=== PATIENT | female | born 1980 | race Caucasian/White ===

== ENCOUNTER 2020-04-27 15:08 | Outpatient (REF) | payer MEDICAID, SELFPAY ==
--- NOTE | 2020-04-27 | MM_ITS ---
EXAMINATION: MM DIAGNOSTIC DIGITAL BREAST TOMOSYNTHESIS, LEFT CLINICAL INFORMATION: Recall from baseline screening for parenchymal asymmetry medial left breast, likely island fibroglandular tissue. COMPARISON: Mammography: 04/04/2020 (baseline). TECHNIQUE: Digital breast tomosynthesis is performed. 2D images are generated from the tomosynthesis. The following views are obtained: 3-D rolled CC x2, 3-D LM. FINDINGS: There are scattered areas of fibroglandular density (ACR BI-RADS breast composition Category b). The additional views show normal fibroglandular densities. There is no mass or architectural abnormality or suspicious parenchymal asymmetry. Results are discussed with the patient at time of visit. IMPRESSION: No mammographic evidence of malignancy. ASSESSMENT: BI-RADS 2: Benign RECOMMENDATION: Routine annual mammography screening. This patient's information was entered into a reminder system with a target due date for their next mammogram.
== END 2020-04-27 15:09 | disposition home or self-care (01) ==
LOC: HO.MAMMO 15:08
PROVIDERS: Visit Provider Family Medicine
DX: R92.2 Inconclusive mammogram (principal)
CPT/HCPCS: 77065

== ENCOUNTER 2020-11-21 07:25 | Outpatient (REF) | payer MEDICAID, SELFPAY ==
[2020-11-21 08:16] LABS: MANUAL DIFF FLAG NO
[2020-11-21 08:19] LABS: Basophils Percent Auto 0.6 % (0-2); Eosinophils Absolute Auto 0.1 X10*3/uL (0.0-0.4); Eosinophils Percent Auto 1.2 % (0-4); Hematocrit 39.7 % (37-47); Hemoglobin 12.9 g/dl (12.0-16.0); Imm Gran Abs Auto 0.02 X10*3/uL (0.00-0.03); Imm Gran Pct Auto 0.3 % (0.0-0.4); Lymphocytes Absolute Auto 2.1 X10*3/uL (1.2-4.9); Lymphocytes Percent Auto 31.6 % (20-40); Mean Corpuscular HGB Conc 32.5 g/dl (31.0-35.0); Mean Corpuscular Hemoglobin 30.1 pg (27.0-33.0); Mean Corpuscular Volume 92.5 fL (80-98); Mean Platelet Volume 9.3 fL (9.4-12.3); Monocytes Absolute Auto 0.5 X10*3/uL (0.1-1.2); Monocytes Percent Auto 7.1 % (2-11); Neutrophils Absolute Auto 3.9 X10*3/uL (2.0-8.3); Neutrophils Percent Auto 59.2 % (45-73); Platelet Count 317 X10*3/uL (160-400); Red Blood Count 4.29 X10*6/uL (4.20-5.50); Red Cell Distribution Width 11.9 % (11.0-16.0); White Blood Count 6.7 X10*3/uL (4.8-10.8)
[2020-11-21 08:42] LABS: Alanine Aminotransferase 21 U/L (0-31); Albumin Level 4.4 g/dL (3.5-5.0); Alkaline Phosphatase 65 U/L (39-117); Anion Gap 14 (12-20); Aspartate Amino Transferase 17 U/L (5-31); Bilirubin Direct 0.3 mg/dL (0.0-0.5); Bilirubin Total 0.8 mg/dL (0.0-1.0); Blood Urea Nitrogen 15 mg/dL (9-16); Calcium 9.4 mg/dL (8.4-10.2); Carbon Dioxide 25 mmol/L (22-29); Chloride 105 mmol/L (96-108); Cholesterol 140 mg/dL; Estimated Glomerular Filt Rate > 60; Glucose Random 98 mg/dL (60-115); HDL Cholesterol 34 mg/dL; LDL Cholesterol Calculated 75 mg/dl; Potassium 4.4 mmol/L (3.3-5.1); Sodium 140 mmol/L (135-145); Total Protein 7.3 g/dL (6.5-8.0); Triglycerides 157 mg/dL
[2020-11-21 09:05] LABS: Free T4 (Free Thyroxine) 0.97 ng/dL (0.71-1.85); Thyroid Stimulating Hormone 0.52 uIU/mL (0.32-4.0); Vitamin D 25-OH Total 13.3 ng/mL (>30)
[2020-11-21 10:29] LABS: Estimated Average Glucose 100 mg/dL; Hemoglobin A1c % 5.1 %
[2020-11-23 03:56] LABS: HIV AB/AG Nonreactive (Nonreactive)
== END 2020-11-21 07:26 | disposition home or self-care (01) ==
LOC: HO.LAB 07:25
PROVIDERS: PCP Internal Medicine; Visit Provider Internal Medicine
DX: Z00.00 Encounter for general adult medical examination without abnormal findings (principal)
CPT/HCPCS: 36415; 80048; 80061; 80076; 82306; 83036; 84439; 84443; 85025; 87389

== ENCOUNTER 2021-08-02 16:39 | Emergency (ER) | payer MEDICAID, SELFPAY ==
--- NOTE | ~2021-08-02 | XR_ITS ---
EXAMINATION: XR CHEST CLINICAL INFORMATION: Dry cough. Previously Covid positive COMPARISON: 02/09/2015 TECHNIQUE: Frontal view of the chest was obtained. FINDINGS: No significant abnormality is noted involving the heart, lungs, mediastinum, bony thorax or soft tissues. XR/XR chest 1V IMPRESSION: Unremarkable examination.
[2021-08-02 16:54] VITALS: BP 138/78; PULSE 91; RESP 20; TEMP 37; O2SAT 100; BMI 29.2
--- NOTE | 2021-08-02 19:21 | ED.URI ---
HPI - URI/Sore Throat General Chief Complaint: Upper Respiratory Symptoms Stated Complaint: cough Time Seen by Provider: 08/02/21 17:36 Source: patient Mode of arrival: ambulatory Limitations: no limitations History of Present Illness HPI Narrative: On July 22 patient tested positive for COVID. Patient is vaccinated, no booster. No fever. Just a continuous cough MD elicited complaint: cough Onset (ago): week(s) Consistency: constant Severity: moderate Exacerbating factors: nothing Relieving factors: nothing Associated symptoms: denies other symptoms Related Data Previous Rx's Medication Instructions Recorded gumxckbeyjrot-RH-uleeyrfovaj 2.5 20 ml PO Q4H PRN #118 ml 08/02/21 mg-5 mg-50 mg/5 mL oral liquid (Robitussin Cough and Cold CF) Allergies Allergy/AdvReac Type Severity Reaction Status Date / Time No Known Allergies Allergy Unverified 04/09/20 18:34 Review of Systems Constitutional: Constitutional: Reports no additional constitutional complaints Eyes: Eyes: Reports no additional eye complaints ENT: Denies dizziness Cardiovascular: Cardiovascular: Reports no additional cardiovascular complaints Respiratory: Respiratory: Reports as per HPI Gastrointestinal: Gastrointestinal: Reports no additional gastrointestinal complaints Genitourinary: Genitourinary: Reports no additional female genitourinary complaints Musculoskeletal: Musculoskeletal: Reports no additional musculoskeletal complaints Integumentary/Breasts: Skin/Breast: Denies rash Neurologic: Reports system reviewed and no additional complaints, except as documented, Denies dizziness and Denies Sensory deficit (Neuro) Psychiatric: Psychiatric: Denies anxiety PMFSH Past Medical History Medical History No pertinent past medical history Surgical History No pertinent past surgical history Social History Social History Advance Directives: No Advance Directives Information Provided: Yes Patient : No Physical Exam Vital Signs: Vital Signs: Last Vital Signs Temp 98.6 F 08/02/21 16:54 Pulse 91 08/02/21 16:54 Resp 20 08/02/21 16:54 BP 138/78 08/02/21 16:54 Pulse Ox 100 08/02/21 16:54 BMI result Body Mass Index 29.2 Const: General: healthy appearing Nutritional Appearance: average body habitus Orientation/consciousness: oriented to person and patient oriented x3 Limitations: no limitations HENMT: Head: Yes normal to inspection Ears: external ears normal General nose exam: Normal external nose present Mouth: Normal oral and palatal mucosa present and oropharynx normal Throat: Yes posterior oropharynx normal Eyes: General: appearance normal, both eyes and all related structures Neck: Other: supple Neck: Yes normal visual inspection Chest: Chest palpation & inspection: normal inspection of the chest Resp: Other: continual dry cough Auscultation: clear to auscultation bilaterally Cardio: Jugular venous distension: no JVD Rate: regular rate Rhythm: regular rhythm Heart sounds: S1 normal heart sound present and S2 normal heart sound present GI: Inspection: Yes normal to inspection Palpation (GI): Soft to palpation, nontender and No hepatosplenomegaly present Auscultation: normal bowel sounds : General: Yes no CVA tenderness Back/Spine/Pelvis: Back: no CVA tenderness Skin: General skin exam: no rashes or lesions noted Neuro: General: oriented to person and patient oriented x3 Cranial nerves: Yes CN's II-XII intact bilaterally Motor exam (neuro): 5/5 motor strength present throughout Sensory Exam: No Sensory deficit (Neuro) Extrem: General: Yes normal to inspection Psych: Appearance: grossly normal Course Reevaluation(s) Reevaluation #1: patient is well appearing despite constant cough, vitals and oxygen are normal, will dc home on cough medicine Time: 19:30 MDM - URI/Sore Throat Imaging Data Chest x-ray: Radiologist's impression: FINDINGS: No significant abnormality is noted involving the heart, lungs, mediastinum, bony thorax or soft tissues. XR/XR chest 1V IMPRESSION: Unremarkable examination. ? Discharge Plan Discharge Clinical Impression: COVID-19 Patient Disposition: Home, Self-Care Instructions: COVID-19 (Coronavirus Disease 2019) (ED) Prescriptions: New Robitussin Cough and Cold CF 2.5-5-50 mg/5 mL liquid 20 ml PO Q4H PRN (Reason: cough) Qty: 118 RF: 0 Referrals: Physician,Unknown J [Primary Care Provider] - 1 week
== END 2021-08-02 19:38 | disposition home or self-care (01) ==
PROVIDERS: Emergency Provider Emergency Medicine
DX: R05.9 Cough, unspecified (principal); Z86.16 Personal history of COVID-19
CPT/HCPCS: 71045; 99283

== ENCOUNTER 2022-04-30 09:57 | Outpatient (REF) | payer OTHER, SELFPAY ==
--- NOTE | ~2022-04-30 | MM_ITS ---
EXAMINATION: MM SCREENING DIGITAL BREAST TOMOSYNTHESIS, BILATERAL CLINICAL INFORMATION: Screening. Asymptomatic. The lifetime risk of breast cancer based on the Tyrer-Cuzick Model is 7%. COMPARISON: Mammography: 04/27/2020, 04/04/2020 (baseline) TECHNIQUE: Digital breast tomosynthesis is performed in both the craniocaudal and mediolateral oblique views along with computer-aided detection (CAD). Synthesized 2D images are generated from the tomosynthesis. FINDINGS: There are scattered areas of fibroglandular density (ACR BI-RADS breast composition Category b). Parenchymal pattern is similar to prior exam. No interval mass or architectural abnormality. No abnormal calcifications. Low right axillary tail nodes stable. The skin contours are smooth. MM/MM tomosynthesis screening BI IMPRESSION: No mammographic evidence of malignancy. ASSESSMENT: BI-RADS 1: Negative RECOMMENDATION: Routine annual mammography screening. This patient's information was entered into a reminder system with a target due date for their next mammogram.
== END 2022-04-30 09:58 | disposition home or self-care (01) ==
LOC: HO.MAMMO 09:57
PROVIDERS: PCP Internal Medicine; Visit Provider Internal Medicine
DX: Z12.31 Encounter for screening mammogram for malignant neoplasm of breast (principal)
CPT/HCPCS: 77063; 77067

== ENCOUNTER 2023-06-03 09:29 | Outpatient (REF) | payer OTHER, SELFPAY | END 2023-06-03 09:30 | disposition home or self-care (01) | LOC: HO.MAMMO 09:29 | PROVIDERS: Visit Provider Internal Medicine | DX: Z12.31 Encounter for screening mammogram for malignant neoplasm of breast (principal) | CPT/HCPCS: 77063; 77067 ==

== ENCOUNTER → 2023-06-03 09:45 | Outpatient (BNV) | payer OTHER, SELFPAY | PROVIDERS: Visit Provider Radiology Diagnostic Radiology | DX: Z12.31 Encounter for screening mammogram for malignant neoplasm of breast (principal) | CPT/HCPCS: 77063; 77067 ==

== ENCOUNTER 2023-09-08 11:19 | Outpatient (REF) | payer OTHER, SELFPAY ==
[2023-09-08 15:23] LABS: Vitamin D 25-OH Total 33.6 ng/mL (>30)
== END 2023-09-08 11:20 | disposition home or self-care (01) ==
LOC: HO.CHCLDS 11:19
PROVIDERS: Visit Provider Internal Medicine
DX: E55.9 Vitamin D deficiency, unspecified (principal)
CPT/HCPCS: 36415; 82306

== ENCOUNTER 2024-03-23 20:36 | Emergency (ER) | payer OTHER, SELFPAY ==
[2024-03-23 20:54] VITALS: BP 152/87; PULSE 102; RESP 16; TEMP 36.7; O2SAT 99; BMI 29.2
[2024-03-24 00:36] VITALS: BP 156/87; PULSE 113; RESP 18; TEMP 36.6; O2SAT 99
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
[2024-03-24 01:13] VITALS: BP 156/87; PULSE 113; RESP 18; TEMP 36.6; O2SAT 99
== END 2024-03-24 01:14 | disposition home or self-care (01) ==
PROVIDERS: Emergency Provider Emergency Medicine Emergency Medical Services
DX: S09.90XA Unspecified injury of head, initial encounter (principal); S00.11XA Contusion of right eyelid and periocular area, initial encounter; V28.09XA Other motorcycle driver injured in noncollision transport accident in nontraffic accident, initial encounter; Y93.89 Activity, other specified; Y92.008 Other place in unspecified non-institutional (private) residence as the place of occurrence of the external cause; Y99.9 Unspecified external cause status
CPT/HCPCS: 99282; 99284

== ENCOUNTER 2024-06-08 09:35 | Outpatient (REF) | payer OTHER, SELFPAY ==
--- NOTE | ~2024-06-08 | MM_ITS ---
EXAMINATION: MM SCREENING DIGITAL BREAST TOMOSYNTHESIS, BILATERAL CLINICAL INFORMATION: Screening. Asymptomatic. COMPARISON: Mammography: Comparison is made with available priors TECHNIQUE: Digital breast mammography with tomosynthesis is performed in both the craniocaudal and mediolateral oblique views along with computer-aided detection (CAD). FINDINGS: There are scattered areas of fibroglandular density (ACR BI-RADS breast composition Category b). There are no significant masses, abnormal calcifications, or other abnormalities. MM/MM tomosynthesis screening BI IMPRESSION: No mammographic evidence of malignancy. ASSESSMENT: BI-RADS BI-RADS 1 - Negative RECOMMENDATION: Routine annual mammography screening. 1 year F/U This examination should not preclude the clinical evaluation of a suspicious palpable abnormality. This patient's information was entered into a reminder system with a target due date for their next mammogram. Electronically signed by: Kailyn Cortez DO 06/18/2024 11:06 AM RENU
== END 2024-06-08 09:36 | disposition home or self-care (01) ==
LOC: HO.MAMMO 09:35
PROVIDERS: PCP Internal Medicine; Visit Provider Internal Medicine
DX: Z12.31 Encounter for screening mammogram for malignant neoplasm of breast (principal)
CPT/HCPCS: 77063; 77067

== ENCOUNTER → 2024-06-08 09:45 | Outpatient (BNV) | payer OTHER, SELFPAY | PROVIDERS: PCP Internal Medicine; Visit Provider Internal Medicine | DX: Z12.31 Encounter for screening mammogram for malignant neoplasm of breast (principal) | CPT/HCPCS: 77063; 77067 ==

== ENCOUNTER 2025-06-14 09:37 | Outpatient (REF) | payer OTHER, SELFPAY ==
--- NOTE | ~2025-06-14 | MM_ITS ---
EXAMINATION: MM SCREENING DIGITAL BREAST TOMOSYNTHESIS, BILATERAL CLINICAL INFORMATION: Screening. Asymptomatic. COMPARISON: Comparison made to multiple prior, most recent June 08, 2024, and most remote April 04, 2020. TECHNIQUE: Digital breast tomosynthesis is performed in mediolateral oblique and craniocaudal views along with computer-aided detection (CAD). Synthesized 2D images are generated from the tomosynthesis. FINDINGS: BREAST COMPOSITION: There are scattered areas of fibroglandular density. BILATERAL BREASTS: No significant masses, suspicious calcifications or other abnormalities are seen in either breast. MM/MM tomosynthesis screening BI IMPRESSION: BILATERAL BREASTS: Negative, no mammographic evidence of malignancy. Normal interval follow-up is recommended in 12 months. ASSESSMENT: BI-RADS: Category 1: Negative RECOMMENDATION: Routine annual mammography screening. FOLLOW-UP: 1 year F/U This examination should not preclude the clinical evaluation of a suspicious palpable abnormality. This patient's information was entered into a reminder system with a target due date for their next mammogram. Electronically signed by: Luis Daniel Osuna MD 06/17/2025 07:27 AM EST
--- OUTSIDE RECORDS SUMMARY | 2025-06-14 09:40 | XMS_ITS | Encounter Summary ---
Author Organization [employer] Address [address] [place] [address] Care Team Providers Care Smoke And Flame Specialist Name Role Phone Huy Liang MD Primary Care Prov ider Reason for Visit * Reason Onset Date Comments Lab Orders 04/18/2025 Encounter Details Date Type Department Care Team ([facility] Contact Info) Description 04/18/2025 Telephone [facility] [address] [place] [address] Huy Liang MD [address] [place] [address] Lab Orders Social History Tobacco Use Types Packs/Day Years Used Date Smoking Tobacco: Never Passive Smoke Exposure: Never Smokeless Tobacco: Never Alcohol Use Standard Drinks/Week Comments Never 0 (1 standard drink = 0.6 oz pur e alcohol) Depression Answer Date Recorded Patient Health Questionnaire-9 Score 0 12/06/2024 Patient Health Questionnaire-9 Score 0 12/06/2024 Last PHQ-9: Questionnaire Data Not on file 0 12/06/2024 Housing Stability Answer Date Recorded What is your housing situation today? I have arcelia cathryn 11/28/[address] you li ve. Do you have problems with any of the following? None of the above 11/28/2024 Food Insecurity Answer Date Recorded Within the past 12 months, y ou worried that your food would run out before you got money to buy more: Never True 11/28/2024 Within the past 12 months,th e food you bought just didn't last and you didn't have enough money to get more: Never True 02/2025 Transportation Answer Date Recorded In the past 12 months, has l ack of transportation kept you from medical appts, meetings, work or from getting things needed for daily living? No 11/28/2024 Utilities Answer Date Recorded In the past 12 months, has t he electric, gas, oil or water company threatened to shut off services in your home? No 11/28/2024 Depression Answer Date Recorded Patient Health Questionnaire-2 Score 0 12/06/2024 Internet Access Answer Date Recorded Internet Access Q1 Yes 11/28/2024 Internet Access Q2 Not on file 11/28/2024 Comments No Sex and Gender Information Value Date Recorded Sex Assigned at Female 05/23/2022 10:25 AM EDT Legal Sex Female 10:25 AM EDT Gender Identity Female 05/23/2022 10:25 AM EDT Sexual Orientation Straight 05/23/2022 10 :25 AM EDT documented as of this encounter Miscellaneous Notes * Telephone Encounter - Shivam Blackman - 04/18/2025 10:28 AM EDT Tc from pt [place] a full [place] [facility] Contact pt at [phone] documented in this encounter Plan of Treatment Not on file documented as of this encounter Visit Diagnoses Not on filedocumented in this encounter Additional Health Concerns Assessment Noted Time PHQ-9 Depression Total Score: 0 12/07/19 25 2:37 PM EDT documented as of this encounter Care Teams Smoke And Flame Specialist Relationship Specialty Start Date End Date Huy Liang MD [address] [place] [address] PCP - General Internal Medicine 12/22/19 documented as of this encounter
--- OUTSIDE RECORDS SUMMARY | 2025-06-14 09:40 | XMS_ITS | Clinical Summary ---
Author Organization [facility] Address [address] [place] [address] Phone Care Team Providers Care Rivet Spinner Name Role Phone Huy Liang Primary Care Provide r Allergies No known active allergies Encounters Date Type Department Care Team Description 04/29/2025 4:34 AM EDT - 04/29/2025 5:05 AM EDT Emergency [facility] Emergency [address] [place] [address] Respiratory tract infection (Primary Dx) Discharge Disposition: Home or Self Care from Last 3 Months Social History Tobacco Use Types Packs/Day Years Used Date Smoking Tobacco: Never Smokeless Tobacco: Never Tobacco Cessation:Counseling Given: Not Answered Comments Unknown Sex and Gender Information Value Date Recorded Sex Assigned at Not on file Legal Sex Female 3:45 AM EDT Gender Identity Not on file Sexual Orientation Not on file Obstetrics History Last Filed Vital Signs Vital Sign Reading Time Taken Comments Blood Pressure 136/89 04/29/2025 3:53 AM EDT Pulse 100 04/29/2025 3:53 AM EDT Temperature 36.8 C (98.2 F) 04/29/2025 3:53 AM EDT Respiratory Rate 16 04/29/2025 3:53 AM EDT Oxygen Saturation 97% 04/29/2025 3:53 AM EDT Inhaled Oxygen Concentration - - Weight 69.9 kg (154 lb) 04/29/2025 3:53 AM EDT Height 157.5 cm (5' 2 ) 04/29/2025 3:53 AM EDT Body Mass Index 28.17 04/29/2025 3:53 AM EDT Plan of Treatment Health Maintenance Due Date Last Done Comments Breast Cancer Screening 1979 Colorectal Cancer Screening: Colonoscopy 1979 Cervical Cancer Screening: P ap Smear 2000 HPV Vaccines (1 - 3-dose SCD M series) 2006 Hepatitis B Vaccines (3 of 3 - 19+ 3-dose series) 07/02/2019 01/30/2019, 12/31/2018 Depression Screening 07/24/2024 COVID-19 Vaccine (1 - 2024-2 6 season) 2025 Influenza Vaccine (#1) 2025 4, 04/30/2014, 04/03/2013 Hepatitis C Screening 04/29/2025 Social Influencers of Health Screening 04/29/2025 DTaP,Tdap,and Td Vaccines (2 - Td or Tdap) 05/31/2027 05/31/2017 RSV Immunization Adult Patients (1 - 1-dose 75+ series) 2054 Varicella Vaccines Aged Out 01/30/2019, 12/14/2018 No longer eligible based on patient's age to complete this topic Hepatitis A Vaccines Aged Out 08/26/2019, 12/31/2018 No longer eligible based on patient's age to complete this topic HIV Screening Completed 04/07/2022 HIB Vaccines Aged Out No longer eligi ble based on patient's age to complete this topic IPV Vaccines Aged Out No longer eligi ble based on patient's age to complete this topic MMR Vaccines Aged Out No longer eligi ble based on patient's age to complete this topic Meningococcal ACWY Vaccine Aged Out N o longer eligible based on patient's age to complete this topic Meningococcal B Vaccine Aged Out No l onger eligible based on patient's age to complete this topic Pneumococcal Vaccine: Pediatrics (0 to 5 Years) and At-Risk Patients (6 to 49 Years) Aged Out No longer eligible b ased on patient's age to complete this topic RSV Immunization Patients Under 20 months Aged Out No longer eligible b ased on patient's age to complete this topic Procedures Procedure Name Priority Date/Time Associated Diagnosis Comments XR CHEST 2 VIEWS STAT 04/29/2025 4:04 AM EDT from Last 3 Months Results * XR Chest 2 Views (04/29/2025 4:04 AM EDT) Anatomical Region Laterality Modality Body Radiographic Silvina ging 04/29/2025 9:38 AM EDT Impressions 04/29/2025 9:39 AM EDT Impression: Normal chest. Telerad KAELA ([id number]) -------- FINAL REPORT -------- Dictated By: Catia Jacobsen Dictated Date: 04/29/2025 09:38 ET Assigned Physician: Catia Jacobsen Reviewed and Electronically Signed By: Catia Jacobsen Signed Date: 04/29/2025 09:39 ET Workstation ID: [id number] Transcribed By: Self Edit Transcribed Date: 04/29/2025 09:38 ET Narrative 04/29/2025 9:39 AM EDT History: Cough. Comparison: No previous imaging at this institution. Findings: PA and lateral views. The cardiomediastinal silhouette, hilar contours and pulmonary vascularity are within normal limits. The lungs are clear. The costophrenic angles are sharp. Bones and soft tissues are unremarkable. Procedure Note Catia Jacobsen MD - 04/29/2025 History: Cough. Comparison: No previous imaging at this institution. Findings: PA and lateral views. The cardiomediastinal silhouette, hilar contours andpulmonary vascularity are within normal limits. The lungs are clear. Thecostophrenic angles are sharp. Bones and soft tissues are unremarkable. IMPRESSION: Impression: Normal chest. Telerad KAELA ([id number]) -------- FINAL REPORT -------- Dictated By: Catia Jacobsen Dictated Date: 04/29/2025 09:38 ET Assigned Physician: Catia Jacobsen Reviewed and Electronically Signed By: Catia Jacobsen Signed Date: 04/29/2025 09:39 ET Workstation ID: [id number] Transcribed By: Self Edit Transcribed Date: 04/29/2025 09:38 ET Yasmin SHERWOOD IMG XR PROCEDURES Final Result from Last 3 Months Insurance [facility] Care Teams Rivet Spinner Relationship Specialty Start Date End Date Huy Liang [address] [place] [address] [place] [id number] PCP - General Internal Medicine 04/29/25
--- OUTSIDE RECORDS SUMMARY | 2025-06-14 09:40 | XMS_ITS | Clinical Summary ---
Author Organization [facility] Address [address] [place] [address] Care Team Providers Care Crown Attacher Name Role Phone Huy Liang MD Primary Care Prov ider Allergies No known active allergies Medications Blood Pressure Monitoring (Adult Blood Pressure Cuff Lg) kitIndications:E levated blood pressure reading 1 EACH IN THE MORNING. 1 kit 01/30/2025 Active Active Problems Problem Noted Date Diagnosed Date Elevated blood pressure reading 12/06/2024 Assessment & Plan (12/06/2024 4:23 PM EDT): Advise low-sodium diet, reduction I will prescribe for patient on blood pressure monitor and I advised to monitor her blood pressure for the next 2 weeks log it and report back to us Screening for cervical cancer 09/08/2023 Assessment & Plan (09/08/2023 1:33 PM EST): Will refer for screening pap Annual physical exam 09/08/2023 Assessment & Plan (12/06/2024 4:23 PM EDT): See HPI Vitamin D deficiency 03/30/2023 Assessment & Plan (09/08/2023 1:32 PM EST): Will order new labs for guidance Assessment & Plan (03/30/2023 3:56 PM EDT): Will schedule for a physical examination in 2-3 months, currently she does not have any complains. Breast cancer screening by mammogram 03/30/2023 Assessment & Plan (03/30/2023 3:56 PM EDT): Due on April, she will call to schedule appointment Encounters Date Type Department Care Team Description 05/03/2025 10:20 AM EDT Office Visit [facility] [address] [place], [place] [phone] Shlomo Wilson MD Viral URI with cough 05/03/2025 Travel 04/30/2025 Orders Only [facility] [address] [place], [place] [phone] ProviderJavy MD 04/18/2025 1:30 PM EDT Office Visit [facility] [address] [place] [address] Sujit, Nidhi, OD Normal eye exam (Primary Dx); Presbyopia 04/18/2025 Travel 04/18/2025 Telephone [facility] [address] [place], [place] [phone] ReisHuy Segura MD Lab Orders 04/17/2025 Travel from Last 3 Months Immunizations Immunization Administration Dates Next Due Hep A, Adult 08/26/2019,12/31/2018 Hep B, adult 01/30/2019,12/31/2018 Influenza injectable quadrivalent preservative f ree 09/08/2023 Influenza, IIV3, injectable 04/30/2014 Influenza, Split (incl. purified surface antigen ) 04/03/2013 Tdap 05/31/2017 Varicella 01/30/2019,12/14/2018 Family History Medical History Relation Name Comments Hypertension Brother Hypertension Father Diabetes Mother Hypertension Mother Relation Name Status Comments Brother Father Mother Social History Tobacco Use Types Packs/Day Years Used Date Smoking Tobacco: Never Passive Smoke Exposure: Never Smokeless Tobacco: Never Tobacco Cessation:Counseling Given: Not Answered Alcohol Use Standard Drinks/Week Comments Never 0 (1 standard drink = 0.6 oz pur e alcohol) Depression Answer Date Recorded Patient Health Questionnaire-9 Score 0 12/06/2024 Patient Health Questionnaire-9 Score 0 12/06/2024 Last PHQ-9: Questionnaire Data Not on file 0 12/06/2024 Housing Stability Answer Date Recorded What is your housing situation today? I have arcelia lockett 11/28/[address] you li [...] Orientation Straight 05/23/2022 10 :25 AM EDT Last Filed Vital Signs Vital Sign Reading Time Taken Comments Blood Pressure 139/96 05/03/2025 10:08 AM EDT Pulse 107 05/03/2025 10:08 AM EDT Temperature 37.2 C (98.9 F) 05/03/2025 10:08 AM EDT Respiratory Rate 21 05/03/2025 10:08 AM EDT Oxygen Saturation 98% 05/03/2025 10:08 AM EDT Inhaled Oxygen Concentration - - Weight 73 kg (161 lb) 05/03/2025 10:08 AM EDT Height 154.9 cm (5' 1 ) 05/03/2025 10:08 AM EDT Body Mass Index 30.42 05/03/2025 10:08 AM EDT Plan of Treatment Health Maintenance Due Date Last Done Comments CT Colonography 1979 Colonoscopy 1979 Colorectal Cancer Screening 1979 FIT DNA/Cologuard 1979 FIT 1979 FOBT 1979 Sigmoidoscopy 1979 Family Planning (PISQ) 1994 HPV Vaccines (1 - 3-dose series) 1994 Pap Smear 2000 Hepatitis B Vaccines (3 of 3 - 19+ 3-dose series) 07/02/2019 01/30/2019, 12/31/2018 Cervical Cancer Screening 11/07/2023 HPV/Cotest 11/07/2023 11/06/2018 Dental Oral Exam 02/07/2025 08/09/2024 Dental Prophylaxis 02/07/2025 08/09/2024 COVID-19 Vaccine ( season) 2025 11/09/2020, 10/17/2020 Influenza Vaccine (#1) 2025 , 07/21/2020, 08/26/2019, Additional history exists Dental X-Ray: Bitewings 08/10/2025 08/09/2024 SDOH Screening 11/28/2025 11/28/2024 Alcohol/Substance Use Screening 12/06/2025 12/06/2024 Depression Screening 12/06/2025 12/06/2024, 12/07/19 25 Disability Screening 12/06/2025 12/06/2024 Tobacco Screening 05/03/2026 05/03/2025 Mammogram 06/08/2026 06/08/2024, 05/24, 04/30/2022 DTaP/Tdap/Td Vaccines (2 - Td or Tdap) 05/31/2027 05/31/2017 Dental X-Ray: Full Mouth 08/10/2027 08/09/2024 Zoster Vaccines (1 of 2) 2029 RSV Patients and Patients Aged 60 years or older (1 - 1-dose 75+ series) 2054 Hepatitis A Vaccines Aged Out 08/26/2019, 01/01/20 19 No longer eligible based on patient's age to complete this topic HIV Screening Completed 04/07/2022, 11/21/2020 Hepatitis C Screening Completed 04/07/2022 HIB Vaccines Aged Out No longer eligi ble based on patient's age to complete this topic IPV Vaccines Aged Out No longer eligi ble based on patient's age to complete this topic Meningococcal B Vaccine Aged Out No l onger eligible based on patient's age to complete this topic Meningococcal Vaccine Aged Out No jo estefany eligible based on patient's age to complete this topic Pneumococcal Vaccine: Pediatrics (0 to 5 Years) and At-Risk Patients (6 to 49) Years Aged Out No longer eligible based on patient's age to complete this topic RSV under 20 months Aged Out No longe r eligible based on patient's age to complete this topic Rotavirus Vaccines Aged Out No longer eligible based on patient's age to complete this topic Procedures Procedure Name Priority Date/Time Associated Diagnosis Comments POCT INFLUENZA A (ID NOW RAPID MOLECULAR) Routine 05/03/2025 10:15 AM EDT Viral URI with cough POCT INFLUENZA B (ID NOW RAPID MOLECULAR) Routine 05/03/2025 10:12 AM EDT Viral URI with cough POCT RAPID COVID ANTIGEN Routine 05/03/2025 10:11 AM EDT Viral URI with cough XR CHEST 2 VIEWS Routine 04/29/2025 9:30 AM EDT PROPHYLAXIS - ADULT Routine 08/09/2024 1 0:00 AM EST Secondary dental caries associated with failed or defective dental mandaeism Gingivitis INTRAORAL - COMPLETE SERIES OF RADIOGRAPHIC IMAGES Routine 08/09/2024 10:00 AM EST Secondary dental caries associated with failed or defective dental mandaeism Gingivitis COMPREHENSIVE ORAL EVALUATION - NEW OR ESTABLISHED PATIENT Routine 08/09/2024 10:00 AM EST Secondary dental caries associated with failed or defective dental mandaeism Gingivitis BI MAMMOGRAM SCREENING TOMOSYNTHESIS BILATERAL Routine 06/08/2024 9:40 AM EST ZZZ HISTORICAL HEPATITIS C AB W/REFL TO HCV RNA, QN, PCR Routine 04/07/2022 8:40 AM EDT HIV 1/2 ANTIGEN/ANTIBODY, FOURTH GENERATION W/RFL Routine 04/07/2022 8:40 AM EDT ZZZ HISTORICAL HPV MRNA E6/E7 Routine 11/06/2018 2:25 PM EDT from Last 3 Months or Most Recently Relevant to Health Maintenance Results * POCT Rapid Influenza A MTZ ID NOW (05/03/2025 10:15 AM EDT) Influenza A Negative Negative, Indeterminate [facility] QC Media Lot # [id number] [facility] Lot# Expiration Date [facility] Swab 05/03/2025 10:1 5 AM EDT us Shlomo Wilson MD POINT OF CARE TEST ENTER/EDIT OR DERABLES Final Result Performing Organization Address [facility] Co de Phone Number [facility] [address] [place] [phone] * POCT Rapid Influenza B MTZ ID NOW (05/03/2025 10:12 AM EDT) Influenza B Negative Negative, Indeterminate [facility] QC Media Lot # [id number] [facility] Lot# Expiration Date [facility] Swab 05/03/2025 10:1 2 AM EDT us Shlomo Wilson MD POINT OF CARE TEST ENTER/EDIT OR DERABLES Final Result Performing Organization Address City/[facility]/ZIP Co de Phone Number [facility] [address] [place] [phone] * POCT Rapid Covid-19 BinaxNOW (05/03/2025 10:11 AM EDT) Rapid COVID Ag Negative QC Media Lot # [id number] Lot# Expiration Date Swab 05/03/2025 10:1 1 AM EDT us Shlomo Wilson MD POINT OF CARE TEST ENTER/EDIT OR DERABLES Final Result * XR Chest 2 Views (04/29/2025 9:30 AM EDT) Anatomical Region Laterality Modality Chest Radiographic Silvina ging us Historical Provider MD SCALES XR PROCEDURES Final R esult * BI Mammogram Screening Tomosynthesis Bilateral (06/08/2024 9:40 AM EST) Anatomical Region Laterality Modality Breast Bilateral Mammography 06/08/2024 9:40 AM EST Narrative 06/18/2024 11:09 AM EST [place] [facility] [address] [place] [address] Mammography Report Signed Patient: Benito Ng MR#: [id number] : 1980 Acct:[id number] Age/Sex: 43 / F ADM Date: 06/08/24 Loc: HO.MAMMO Attending Dr: Huy Whiteside MD Ordering Physician: Huy Liang MD Res ults: 1Negative Date of Service: 06/08/24 Follow Up: 1 Year From Orig ina Mammogram Procedure(s): MM tomosynthesis screening BI Accession Number(s): [id number] cc: Huy Liang MD EXAMINATION: MM SCREENING DIGITAL BREAST TOMOSYNTHESIS, BILATERAL CLINICAL INFORMATION: Screening. Asymptomatic. COMPARISON: Mammography: Comparison is made with available priors TECHNIQUE: Digital breast mammography with tomosynthesis is performed in both the craniocaudal and mediolateral oblique views along with computer-aided detection (CAD). FINDINGS: There are scattered areas of fibroglandular density (ACR BI-RADS breast composition Category b). There are no significant masses, abnormal calcifications, or other abnormalities. MM/MM tomosynthesis screening BI IMPRESSION: No mammographic evidence of malignancy. ASSESSMENT: BI-RADS BI-RADS 1 - Negative RECOMMENDATION: Routine annual mammography screening. 1 year F/U This examination should not preclude the clinical evaluation of a suspicious palpable abnormality. This patient's information was entered into a reminder system with a target due date for their next mammogram. Electronically signed by: Kailyn Cortez DO 06/18/2024 11:06 AM EST RP Dictated By: Kailyn Cortez DO Signed By: <Electronically signed by Kailyn Cortez DO in OV> 06/18/24 1106 DD/ 9 TD/TT: 06/08/24 09 Fruit Press Operator: Procedure Note Donotuseinterpreter, Image - 06/18/2024 [place] [facility] [address] [place] [address] Mammography Report Signed Patient: Keven NgR#: [id number] : 1980Acct:[id number] Age/Sex: 43 / FADM Date: 06/08/24 Loc: HO.MAMMO Attending Dr: Huy Whiteside MD Ordering Physician: Huy Liang ults: 1Negative Date of Service: 06/08/24Follow Up: 1 Year From Orig ina Mammogram Procedure(s): MM tomosynthesis screening BI Accession Number(s): [id number] cc: Huy Liang MD EXAMINATION: MM SCREENING DIGITAL BREAST TOMOSYNTHESIS, BILATERAL CLINICAL INFORMATION: Screening. Asymptomatic. COMPARISON: Mammography: Comparison is made with available priors TECHNIQUE: Digital breast mammography with tomosynthesis is performed in both the craniocaudal and mediolateral oblique views along with computer-aided detection (CAD). FINDINGS: There are scattered areas of fibroglandular density (ACR BI-RADS breast composition Category b). There are no significant masses, abnormal calcifications, or other abnormalities. MM/MM tomosynthesis screening BI IMPRESSION: No mammographic evidence of malignancy. ASSESSMENT: BI-RADS BI-RADS 1 - Negative RECOMMENDATION: Routine annual mammography screening. 1 year F/U This examination should not preclude the clinical evaluation of a suspicious palpable abnormality. This patient's information was entered into a reminder system with a target due date for their next mammogram. Electronically signed by: Kailyn Cortez DO 06/18/2024 11:06 AM EST RP Dictated By: Kailyn Cortez DO Signed By: <Electronically signed by Kailyn Cortez DO in OV> 06/18/24 1106 DD/ 0940 TD/TT: 06/08/24 0955 Fruit Press Operator: Huy Whiteside MD IMG BI PROCEDURES Final Result * HEPATITIS C AB W/REFL TO HCV RNA, QN, PCR (04/07/2022 8:40 AM EDT) HEPATITIS C ANTIBODY NON-REACT NIKOS NON-REACT NIKOS [facility] INDEX 0.05 <1.00 [facility] Comment: HCV antibody was non-reactive. There is no laboratory evidence of HCV infection. In most cases, no further action is required. However, if recent HCV exposure is suspected, a test for HCV RNA (test code 04358) is suggested. For additional information please refer to http://[employer]/faq/EGY45k6 (This link is being provided for informational/ educational purposes only.) 04/07/2022 8:40 AM EDT Huy Whiteside MD HISTORICAL/NON ORD ERABLE LABS Final Result [facility] [address] * HIV 1/2 ANTIGEN/ANTIBODY,FOURTH GENERATION W/RFL (04/07/2022 8:40 AM EDT) HIV-1/2 ANTIGEN AND ANTIBODIES, 4TH GENERATION W/ REFLEX NON-REACT NIKOS NON-REACT NIKOS [facility] Comment: HIV-1 antigen and HIV-1/HIV-2 antibodies were not detected. There is no laboratory evidence of HIV infection. PLEASE NOTE: This information has been disclosed to you from records whose confidentiality may be protected by state law. If your state requires such protection, then the state law prohibits you from making any further disclosure of the information without the specific written consent of the person to whom it pertains, or as otherwise permitted by law. A general authorization for the release of medical or other information is NOT sufficient for this purpose. For additional information please refer to http://education.[employer]/faq/RNP232 (This link is being provided for informational/ educational purposes only.) The performance of this assay has not been clinically validated in patients less than 2 years old. 04/07/2022 8:40 AM EDT Huy Whiteside MD LAB BLOOD ORDERABL ES Final Result Performing Organization Address [facility]/ZIP Co de Phone Number [facility] [address] * HPV mRNA E6/E7 (11/06/2018 2:25 PM EDT) HPV mRNA E6/E7 Not Detected NOT DETECTED [facility] Comment: This test was performed using the APTIMA(R) HPV Assay ([employer] This assay detects E6/E7 viral messenger RNA (mRNA) from 14 high-risk HPV types (16,18,31,33,35,39,45,51, 52,56,58,59,66,68). For additional information please refer to: http://education.[employer]/faq/BKG949r2 (This link is being provided for informational/ educational purposes only.) The analytical performance characteristics of this assay have been determined by [employer] [place], [place]. The modifications have not been cleared or approved by the FDA. This assay has been validated pursuant to the CLIA regulations and is used for clinical purposes. Test Performed by [facility], [facility], [address] [place] [address] Yasmany Quesada M.D., Ph.D., Director of Laboratories , CLIA [id number] Please note: Effective 04/04/2016, HPV testing will be performed using [employer]'s APTIMA test which targets mRNA. Detecting mRNA instead of DNA, as in older methods, offers significant improvements in specificity. 11/06/2018 2:25 PM EDT Nadja Nieves CNM HISTORICAL/NON ORDERABLE LABS Final Result [facility] [address] from Last 3 Months or Most Recently Relevant to Health Maintenance Insurance [facility] 3 DENTAL - HSN PARTIAL (MEDICAID) Care Teams Crown Attacher Relationship Specialty Start Date End Date ReisHuy Carrero MD [address] [place] [address] PCP - General Internal Medicine 12/22/19
--- OUTSIDE RECORDS SUMMARY | 2025-06-14 09:40 | XMS_ITS | Encounter Summary ---
Author Organization [facility] Address [address] [place] [address] Care Team Providers Care Concaving Machine Operator Name Role Phone Huy Liang MD Primary Care Prov ider Encounter Details Date Type Department Care Team ([facility] st Contact Info) Description 04/30/2025 Orders Only [facility] [address] [place] [address] Provider, MD Javy Social History Tobacco Use Types Packs/Day Years [...] AM EDT documented as of this encounter Plan of Treatment Not on file documented as of this encounter Procedures Procedure Name Priority Date/Time Associated Diagnosis Comments XR CHEST 2 VIEWS Routine 04/29/2025 9:30 AM EDT documented in this encounter Results * XR Chest 2 Views (04/29/2025 9:30 AM EDT) Anatomical Region Laterality Modality Chest Radiographic Silvina ging us Historical Provider MD SCALES XR PROCEDURES Final R esult documented in this encounter Visit Diagnoses Not on filedocumented in this encounter Additional Health Concerns Assessment Noted Time PHQ-9 Depression Total Score: 0 12/07/19 25 2:37 PM EDT documented as of this encounter Care Teams Concaving Machine Operator Relationship Specialty Start Date End Date Huy Liang MD [address] [place] [phone] PCP - General Internal Medicine 12/22/19 documented as of this encounter
== END 2025-06-14 09:38 | disposition home or self-care (01) ==
LOC: HO.MAMMO 09:37
PROVIDERS: PCP Internal Medicine; Visit Provider Internal Medicine
DX: Z12.31 Encounter for screening mammogram for malignant neoplasm of breast (principal)
CPT/HCPCS: 77063; 77067

== ENCOUNTER → 2025-06-14 09:45 | Outpatient (BNV) | payer OTHER, SELFPAY | PROVIDERS: PCP Internal Medicine; Visit Provider Radiology Body Imaging | DX: Z12.31 Encounter for screening mammogram for malignant neoplasm of breast (principal) | CPT/HCPCS: 77063; 77067 ==